=== PATIENT | female | born 1945 | race Caucasian/White ===

== ENCOUNTER → 2017-06-19 | Outpatient (CLI) | payer MEDICARE, OTHER ==
[~2017-06-19] MED LIST: AMIT10 PO; Advil200 M1 PO; BETA.05TC; FAMO10; FEXPSEER PO; Flonase 0.05% N16 GM; Percocet 5-3251 EACH PO; Red Yeast Rice600 MG; TUMS ULTRA ST1177 MG PO; Vitamin D400 UNI1; Zofran Odt4 MG SL
== END | disposition home or self-care (01) ==
LOC: LAB SHORT 11:48 → PLD 11:48
DX: L57.0 Actinic keratosis (principal)
CPT/HCPCS: 88305

== ENCOUNTER → 2017-07-26 | Outpatient (CLI) | payer MEDICARE, OTHER | END | disposition home or self-care (01) | LOC: PLD 10:33 → LAB SHORT 10:33 | DX: D22.71 Melanocytic nevi of right lower limb, including hip (principal) | CPT/HCPCS: 88305 ==

== ENCOUNTER 2020-12-23 08:15 | Day surgery (SDC) | payer MEDICARE, OTHER ==
[~2020-12-23] VITALS: Ht 165.1 cm; Wt 81.2 kg
[~2020-12-23 08:15] MED LIST changes: +ALLEGRA ALLERG180 MG PO; +VITAMIN D310 MC4 PO
--- NOTE | 2020-12-23 11:42 | NUR ---
12/23/20 1142 Juan Daniel Valdes VANCOMYCIN 1G GIVEN PRE OP 12/23/20 @ [id number]
--- NOTE | 2020-12-23 17:50 | NUR ---
SHIFT SUMMARY PT HAS BEEN ALERT, ORIENTED, & PLEASANT POST OP. UNFORTUNATLY, PT CANNOT LIFT LEG MORE THAN 1 INCH FROM BED FOR MORE THAN SECONDS. DENIES PAIN. EATING, DRINKING WELL.
[2020-12-24 06:41] LABS: BASOPHILS ABSOLUTE AUTO 0.02 K/mm3 (0.00-0.23); BASOPHILS PERCENT AUTO 0 % (0-2); EOSINOPHILS PERCENT AUTO 0 % (0-6); Hemoglobin 11.9 g/dL (11.5-16.0); IMMATURE GRAN ABSOLUTE AUTO 0.07 K/mm3 (0.00-0.10); IMMATURE GRAN PERCENT AUTO 0 % (0-1); LYMPHOCYTES ABSOLUTE AUTO 1.54 K/mm3 (0.84-5.20); LYMPHOCYTES PERCENT AUTO 10 % (21-46); MONOCYTES ABSOLUTE AUTO 0.68 K/mm3 (0.16-1.47); MONOCYTES PERCENT AUTO 4 % (4-13); Mean Corpuscular HGB 30.7 pg (26.0-34.0); Mean Corpuscular Volume 90 fL (80-100); Mean Platelet Volume 9.7 fL (9.1-12.4); NEUTROPHILS ABSOLUTE AUTO 13.34 K/mm3 (1.96-9.15); NEUTROPHILS PERCENT AUTO 85 % (41-73); Platelet Count 197 K/mm3 (150-400); RDW Standard Deviation 39.4 fL (35.1-46.3); Red Blood Cell Count 3.88 M/mm3 (3.80-5.20); White Blood Cell Count 15.65 K/mm3 (4.00-11.30)
[2020-12-24 07:04] LABS: Anion Gap 6 mmol/L (6-16); Blood Urea Nitrogen 20 mg/dL (8-24); Bun/Creatinine Ratio 24.8 (12.0-20.0); CO2, Blood 23 mmol/L (21-32); Calcium, Blood 8.8 mg/dL (8.5-10.1); Chloride, Blood 107 mmol/L (98-108); Creatinine, Blood 0.81 mg/dL (0.40-1.00); Glomerular Filtration Rate >60 (60-); Glucose, Blood 147 mg/dL (70-99); Magnesium, Blood 2.2 mg/dL (1.6-2.4); Potassium, Blood 4.4 mmol/L (3.5-5.5); Sodium, Blood 136 mmol/L (136-145)
[2020-12-24] MEDS ORDERED: Aspir 8181 MG PO (09:10)
[2020-12-24] MEDS ORDERED: OXYC5 PO (09:11)
[2020-12-24] MEDS ORDERED: PROMETHAZINE12.5 M1 PO (09:12)
--- NOTE | 2020-12-24 11:27 | NUR ---
DISCHARGED DC INSTRUCTIONS REVIEWED. PT LEFT UNIT IN WC W/POSSESSIONS, AQUACEL DRESSINGS, DC PAPERWORK AND POLAR PACK TO RIDE WAITING OUTSIDE.
== END 2020-12-24 11:20 | disposition home or self-care (01) ==
LOC: ORSCMMR 08:15 → ORD 10:45 → ORSCMMR 10:45 → SURS 13:36 → ORSCMMR 12-24 11:20
PROVIDERS: Orthopaedic Surgery
DX: M17.11 Unilateral primary osteoarthritis, right knee (principal); K21.9 Gastro-esophageal reflux disease without esophagitis; E78.5 Hyperlipidemia, unspecified
CPT/HCPCS: 36415; 73560-RT; 80048; 83735; 85025; 97110; 97116; 97161; 97530; A9270; C1713; C1776; J0171; J0735; J1100; J1885; J2250; J2370; J2405; J2704; J2795; J3370; J7120

== ENCOUNTER → 2021-05-19 | Outpatient (CLI) | payer MEDICARE, OTHER ==
[~2021-05-19] MED LIST changes: +Aspir 8181 MG PO; +OXYC5 PO; +PROMETHAZINE12.5 M1 PO
== END ==
LOC: LAB SHORT 11:59 → LAB 11:59
DX: D04.62 Carcinoma in situ of skin of left upper limb, including shoulder (principal)
CPT/HCPCS: 88305

== ENCOUNTER → 2021-11-17 | Outpatient (CLI) | payer MEDICARE, OTHER | END | disposition home or self-care (01) | LOC: LAB SHORT 12:13 → LAB 12:13 | DX: C44.321 Squamous cell carcinoma of skin of nose (principal) | CPT/HCPCS: 88305 ==

== ENCOUNTER 2023-02-12 18:45 | Emergency (ER) | payer MEDICARE, OTHER ==
[~2023-02-12] VITALS: Ht 172.7 cm; Wt 68.0 kg
[2023-02-12 18:56] VITALS: BP 141/81
== END 2023-02-12 20:54 | disposition home or self-care (01) ==
LOC: ER 18:45
DX: S42.295A Other nondisplaced fracture of upper end of left humerus, initial encounter for closed fracture (principal); W19.XXXA Unspecified fall, initial encounter; Z88.0 Allergy status to penicillin; Z88.5 Allergy status to narcotic agent; Z79.82 Long term (current) use of aspirin; Z79.899 Other long term (current) drug therapy
CPT/HCPCS: 73030; 99283-25; A9270

== ENCOUNTER 2024-01-26 10:33 | Emergency (ER) | payer MEDICARE, OTHER ==
[~2024-01-26] VITALS: Ht 165.1 cm; Wt 77.1 kg
[2024-01-26] MEDS ORDERED: CYCL10 PO (10:37)
[2024-01-26] MEDS ORDERED: Robaxin750 MG PO (11:28)
[2024-01-26 12:30] VITALS: BP 148/97
== END 2024-01-26 12:33 | disposition home or self-care (01) ==
LOC: ER 10:33
DX: M54.50 Low back pain, unspecified (principal); M62.830 Muscle spasm of back; Z88.0 Allergy status to penicillin; Z88.5 Allergy status to narcotic agent; Z79.899 Other long term (current) drug therapy; Z79.82 Long term (current) use of aspirin
CPT/HCPCS: 99283